=== PATIENT | male | born 1960 | race Caucasian/White ===

== ENCOUNTER 2017-01-15 19:48 | Emergency (ER) | payer MEDICAID ==
[2017-01-15 20:17] VITALS: BP 141/84; PULSE 97; RESP 18; TEMP 97.9
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
--- NOTE | 2017-01-15 21:30 | CT ---
EXAMINATION TYPE: CT facial bones wo con DATE OF EXAM: 01/15/2017 COMPARISON: NONE HISTORY: Injury to right side zygomatic area with numbness. CT DLP: 1548.5 mGycm Automated exposure control for dose reduction was used. TECHNIQUE: CT scan of the sinuses is performed without contrast, axial images are obtained, coronal r eformatted images are also reviewed. FINDINGS: There is some depression of the floor of the right orbit. There is small air bubbles adjace nt to the inferior rectus muscle. There is a small mucous retention cyst in the left maxillary sinus. The mandible appears intact. Zygomatic arches appear normal. Nasal bone appears intact. The anterior maxilla appears intact. There is some herniation of orbital fat to a small extent from the right orb it into the ethmoid sinus medially. IMPRESSION: The exam shows evidence of a blowout fracture at the floor of the right orbit with some i ntraorbital air and herniation of orbital fat medially. No evidence of muscle entrapment. Fragment di splacement is 5 mm.
--- NOTE | 2017-01-15 21:31 | CT ---
EXAMINATION TYPE: CT brain wo con DATE OF EXAM: 01/15/2017 COMPARISON: NONE HISTORY: Injury to right side zygomatic area with numbness. CT DLP: 1548.5 mGycm Automated exposure control for dose reduction was used. FINDINGS: Ventricles and sulci appear normal. There is no mass effect or midline shift. There is no sign of int racranial hemorrhage. Calvarium is intact. IMPRESSION: NEGATIVE CT SCAN OF THE BRAIN.
[2017-01-15] MEDS ORDERED: CLINDAMYCIN 150 MG CAP PO STA (21:43)
== END 2017-01-15 21:53 | disposition home or self-care (01) ==
LOC: EC 19:48
DX: G50.0 Trigeminal neuralgia (principal); S02.31XA Fracture of orbital floor, right side, initial encounter for closed fracture; Z87.891 Personal history of nicotine dependence; Z79.899 Other long term (current) drug therapy; Z91.012 Allergy to eggs; Z91.018 Allergy to other foods; W20.8XXA Other cause of strike by thrown, projected or falling object, initial encounter; Y93.89 Activity, other specified
CPT/HCPCS: 70450; 70486; 99284

== ENCOUNTER 2017-01-22 20:27 | Emergency (ER) | payer MEDICAID ==
[2017-01-22 20:33] VITALS: RESP 18
[2017-01-22] MEDS ORDERED: DEXTROSE 5%-0.45% NACL 1,000 ML IV ONE (21:52)
[2017-01-22] MEDS ORDERED: SODIUM CHLORIDE 0.9% 1,000 ML IV SCH (22:00)
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
[2017-01-22 22:40] LABS: Basophils % (A) 0 %; CH 32.1; Eosinophils # (A) 0.2 k/uL (0-0.7); Eosinophils % (A) 2 %; HCT 48.8 % (39.0-53.0); HDW 2.39; HGB 16.5 gm/dL (13.0-17.5); Luc # (Auto) 0.17; Luc % (Auto) 2; Lymphocytes # (A) 2.2 k/uL (1.0-4.8); Lymphocytes % (A) 27 %; MCHC 33.7 g/dL (31.0-37.0); MCV 94.7 fL (80.0-100.0); Mean Platelet Volume 7.1; Monocytes # (A) 0.5 k/uL (0-1.0); Monocytes % (A) 6 %; Neutrophils # (A) 5.1 k/uL (1.3-7.7); Neutrophils % (A) 63 %; RBC 5.15 m/uL (4.30-5.90); RDW 13.1 % (11.5-15.5); WBC 8.1 k/uL (3.8-10.6); WBC (Perox) 7.88
--- NOTE | 2017-01-22 22:50 | CT ---
Exam: CT FACIAL Without Contrast History: Recent orbital floor fracture, feeling worse. Comparison: CT face dated 01/15/17. Technique: Continuous axial images of the face were obtained without intravenous contrast. Coronal reformatting was provided. Findings: There is redemonstration of a right orbital floor fracture with approximately 4 mm of cortical step-off. There is residual edema/stranding in the subjacent intraconal fat and surrounding the inferior rectus. Remainder of examination shows no evidence for an additional acute fracture or dislocation. Mucous retention cyst or polyp in the left maxillary sinus measuring 1.6 cm. Impression: Redemonstration of right orbital floor fracture with residual edema and herniation of orbital fat and a minimal portion of the inferior rectus (correlate clinically for signs of entrapment). Overall, similar to prior examination. CTDI vol = 31.41 mGy DLP = 576.46 mGycm One or more of the following dose reduction techniques were used: automated exposure control, adjustment of the mA and/or kV according to patient size, use of iterative reconstruction technique.
[2017-01-22 23:15] LABS: ALT 56 U/L (21-72); AST 35 U/L (17-59); Alkaline Phosphatase 63 U/L (38-126); Anion Gap 10 mmol/L; Blood Urea Nitrogen 14 mg/dL (9-20); Calcium 9.9 mg/dL (8.4-10.2); Carbon Dioxide 29 mmol/L (22-30); Chloride 102 mmol/L (98-107); Glucose 93 mg/dL (74-99); Non-African American GFR(MDRD) >60 (>60 ml/min/1.73 sqM); Potassium 4.4 mmol/L (3.5-5.1); Sodium 141 mmol/L (137-145); Total Bilirubin 0.5 mg/dL (0.2-1.3); Total Protein 7.3 g/dL (6.3-8.2)
[2017-01-23 01:40] VITALS: BP 144/76; PULSE 84; TEMP 98.4
== END 2017-01-23 01:38 | disposition short-term general hospital (02) ==
LOC: EC 20:27
DX: S02.31XA Fracture of orbital floor, right side, initial encounter for closed fracture (principal); F07.81 Postconcussional syndrome; E23.2 Diabetes insipidus; R11.0 Nausea; Z87.891 Personal history of nicotine dependence; Z79.899 Other long term (current) drug therapy; Z91.012 Allergy to eggs; Z91.018 Allergy to other foods; W20.8XXA Other cause of strike by thrown, projected or falling object, initial encounter
CPT/HCPCS: 36415; 70450; 70486; 80053; 83930; 83935; 85025; 96360; 96361; 99285

== ENCOUNTER → 2017-03-16 | Outpatient (CLI) | payer MEDICAID ==
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
== END | disposition home or self-care (01) ==
LOC: RADCTMAIN 14:30
PROVIDERS: ATTEND Ophthalmology Ophthalmic Plastic and Reconstructive Surgery
DX: S02.31XA Fracture of orbital floor, right side, initial encounter for closed fracture (principal)
CPT/HCPCS: 70480

== ENCOUNTER 2023-02-14 09:35 | Emergency (ER) | payer MEDICAID ==
[2023-02-14] MEDS ORDERED: KETOROLAC 15 MG/ML 1 ML VIAL IVP STA (10:01)
[2023-02-14] MEDS ORDERED: SODIUM CHLORIDE 0.9% 1,000 ML IV STA (10:01)
[2023-02-14] MEDS ORDERED: ONDANSETRON 4 MG/2 ML VIAL IVP STA (10:01)
[2023-02-14 10:23] LABS: Basophils % (A) 1 %; Eosinophils # (A) 0.1 k/uL (0-0.7); Eosinophils % (A) 2 %; HCT 47.9 % (39.0-53.0); HGB 15.5 gm/dL (13.0-17.5); Lymphocytes # (A) 1.7 k/uL (1.0-4.8); Lymphocytes % (A) 23 %; MCHC 32.4 g/dL (31.0-37.0); MCV 92.3 fL (80.0-100.0); Mean Platelet Volume 7.7; Monocytes # (A) 0.4 k/uL (0-1.0); Monocytes % (A) 6 %; Neutrophils # (A) 4.8 k/uL (1.3-7.7); Neutrophils % (A) 67 %; Platelet Count 186 k/uL (150-450); RBC 5.19 m/uL (4.30-5.90); RDW 12.7 % (11.5-15.5); WBC 7.1 k/uL (3.8-10.6)
[2023-02-14 10:35] LABS: ALT 39 U/L (4-49); AST 30 U/L (17-59); African American GFR (CKD) 72 (>60 ml/min/1.73 sqM); Albumin 4.5 g/dL (3.5-5.0); Alkaline Phosphatase 58 U/L (38-126); Amylase 95 U/L (30-110); Anion Gap 9 mmol/L; Blood Urea Nitrogen 17 mg/dL (9-20); Calcium 9.4 mg/dL (8.4-10.2); Carbon Dioxide 27 mmol/L (22-30); Chloride 104 mmol/L (98-107); Glucose 129 mg/dL (74-99); Lipase 180 U/L (23-300); Non-African American GFR(CKD) 62 (>60 ml/min/1.73 sqM); Potassium 4.3 mmol/L (3.5-5.1); Sodium 140 mmol/L (137-145); Total Bilirubin 0.7 mg/dL (0.2-1.3); Total Protein 7.5 g/dL (6.3-8.2)
--- NOTE | 2023-02-14 10:36 | ED ---
Abdominal Pain HPI - General Chief Complaint: Abdominal Pain Stated Complaint: Abd Pain Time Seen by Provider: 02/14/23 09:49 Source: patient, RN notes reviewed Mode of arrival: wheelchair Limitations: no limitations - History of Present Illness Initial Comments: This is a 62-year-old male who presents to the emergency department for right lower quadrant abdominal pain. Patient states that this started early this morning. Describes it as sharp and stabbing in nature. He has also started to vomit. Denies any diarrhea or constipation. Also denies any history of similar symptoms in the past. He has not developed any fevers. Denies any fevers, chills, sore throat, cough, dyspnea, chest pain, palpitations, diarrhea, back pain, or headaches. MD Complaint: abdominal pain Location: RLQ Associated Symptoms: nausea, vomiting - Related Data Home Medications Medication Instructions Recorded Confirmed Cyanocobalamin [Vitamin B-12] 500 mcg PO HS 01/15/17 02/14/23 Cholecalciferol [Vitamin D3 (25 25 mcg PO HS 02/14/23 02/14/23 Mcg = 1000 Iu)] Dextromethorphan HBr/Quinidine 1 cap PO HS 02/14/23 02/14/23 [Nuedexta 20-10 mg Capsule] Glucosam/Osvaldo-Msm1/C/Branden/Bosw 1 tab PO HS 02/14/23 02/14/23 [Glucosamine-Chondroitin Tablet] Multivit,Calc,Min/FA/K1/Lycop 1 tab PO HS 02/14/23 02/14/23 [One-A-Day Men's Complete Tab] Previous Rx's Medication Instructions Recorded Ketorolac [Toradol] 10 mg PO Q6HR PRN #15 tab 02/14/23 Ondansetron Odt [Zofran Odt] 4 mg PO Q8HR PRN #15 tab 02/14/23 Tamsulosin [Flomax] 0.4 mg PO DAILY 7 Days #7 cap 02/14/23 Allergies Allergy/AdvReac Type Severity Reaction Status Date / Time egg AdvReac Nausea & Verified 02/14/23 11:30 Vomiting Pork/Porcine Containing AdvReac Diarrhea Verified 02/14/23 11:30 Products [Pork] Review of Systems ROS Statement: Those systems with pertinent positive or pertinent negative responses have been documented in the HPI. ROS Other: All systems not noted in ROS Statement are negative. Past Medical History Past Medical History: No Reported History History of Any Multi-Drug Resistant Organisms: None Reported Past Surgical History: Back Surgery Additional Past Surgical History / Comment(s): COLONOSCOPY Past Anesthesia/Blood Transfusion Reactions: No Reported Reaction Past Psychological History: No Psychological Hx Reported Past Alcohol Use History: Occasional Past Drug Use History: None Reported - Past Family History Mother Family Medical History: No Reported History General Exam Limitations: no limitations General appearance: alert, in distress Head exam: Present: atraumatic, normocephalic, normal inspection Respiratory exam: Present: normal lung sounds bilaterally. Absent: respiratory distress, wheezes, rales, rhonchi, stridor Cardiovascular Exam: Present: regular rate, normal rhythm, normal heart sounds. Absent: systolic murmur, diastolic murmur, rubs, gallop, clicks GI/Abdominal exam: Present: soft, tenderness (RLQ), normal bowel sounds. Absent: distended Neurological exam: Present: alert, oriented X3, CN II-XII intact Psychiatric exam: Present: normal affect, normal mood Skin exam: Present: warm, dry, intact, normal color. Absent: rash Course Vital Signs 02/14/23 02/14/23 02/14/23 09:41 11:02 12:00 Temperature 97.7 F 97.9 F Pulse Rate 87 78 78 Respiratory 24 18 18 Rate Blood Pressure 148/86 143/85 142/83 O2 Sat by Pulse 98 98 95 Oximetry Medical Decision Making - Medical Decision Making This is a 62-year-old male who presents to the emergency department for abdominal pain. Was pt. sent in by a medical professional or institution? @ -No Did you speak to anyone other than the patient for history? @ -No Did you review nursing and triage notes? @ -Yes, and I agree, it is accurate with regards to the patient's symptoms. Were old charts reviewed? @ -No Differential Diagnosis? @ -Differential Abdominal Pain Men: Appendicitis, cholecystitis, diverticulosis, ischemic bowel, pancreatitis, hepatitis, UTI, gastroenteritis, AAA, incarcerated hernia, bowel obstruction, constipation, inflammatory bowel, hepatitis, peptic ulcer disease, splenic infarction, perforated viscus, testicular torsion, this is not meant to be an all-inclusive list EKG interpreted by me (3pts min.)? @ -Not obtained X-rays interpreted by me (1pt min.)? @ -Not obtained CT interpreted by me (1pt min.)? @ -Computed tomography scan of the abdomen and pelvis obtained. My interpretation identifies a right ureteral calculus. U/S interpreted by me (1pt. min.)? @ -Not obtained What testing was considered but not performed? (CT, X-rays, U/S, labs)? Why? @ -None What meds were considered but not given? Why? @ -None Did you discuss the management of the patient with other professionals? @ -No Did you reconcile home meds? @ -No Was smoking cessation discussed for >3mins.? @ -No Was critical care preformed (if so, how long)? @ -No Were there social determinants of health that impacted care today? How? (Homelessness, low income, unemployed, alcoholism, drug addiction, transportation, low edu. Level, literacy, decrease access to med. care, correction, rehab)? @ -No Was there de-escalation of care discussed even if they declined? (Discuss DNR or withdrawal of care, Hospice)? @ -No What co-morbidities impacted this encounter? (DM, HTN, Smoking, COPD, CAD, Cancer, CVA, Hep., AIDS, mental health diagnosis, sleep apnea, morbid obesity)? @ -None Was patient admitted / discharged? @ -Discharged. Lab work obtained revealing an elevated lactic acid of 2.6, and was otherwise nonactionable. Urinalysis has a large amount of blood. Computed tomography scan of the abdomen and pelvis obtained revealing a 5 mm right ureteral calculus. Findings discussed with the patient. Symptoms were well controlled with IV fluids, Toradol, and Zofran, and the patient felt comfortable for discharge home. Prescriptions for Toradol, Zofran, and Flomax provided with instructions reviewed. He was sent home with a urine strainer. Information for urology follow-up provided. He is encouraged to contact them for a follow-up appointment. Undiagnosed new problem with uncertain prognosis? @ -None Drug Therapy requiring intensive monitoring for toxicity (Heparin, Nitro, Insulin, Cardizem)? @ -None Were any procedures done? @ -None Diagnosis/symptom? @ -Right ureteral calculus Acute, or Chronic, or Acute on Chronic? @ -Acute Uncomplicated (without systemic symptoms) or Complicated (systemic symptoms)? @ -Uncomplicated Side effects of treatment? @ -None Exacerbation, Progression, or Severe Exacerbation] @ -Not applicable Poses a threat to life or bodily function? @ -No Return precautions reviewed in depth, the patient is instructed to return to the emergency department with any new, worsening, or concerning symptoms. Patient verbalized understanding. This case was discussed in detail with the attending ED physician, Dr. Lopez. Presentation, findings, and treatment plan discussed in detail as well. - Lab Data Result diagrams: 02/14/23 10:11 02/14/23 10:11 Lab Results 02/14/23 02/14/23 02/14/23 Range/Units 10:11 10:11 10:11 WBC 7.1 (3.8-10.6) k/uL RBC 5.19 (4.30-5.90) m/uL Hgb 15.5 (13.0-17.5) gm/dL Hct 47.9 (39.0-53.0) % MCV 92.3 (80.0-100.0) fL MCH 30.0 (25.0-35.0) pg MCHC 32.4 (31.0-37.0) g/dL RDW 12.7 (11.5-15.5) % Plt Count 186 (150-450) k/uL MPV 7.7 Neutrophils % 67 % Lymphocytes % 23 % Monocytes % 6 % Eosinophils % 2 % Basophils % 1 % Neutrophils # 4.8 (1.3-7.7) k/uL Lymphocytes # 1.7 (1.0-4.8) k/uL Monocytes # 0.4 (0-1.0) k/uL Eosinophils # 0.1 (0-0.7) k/uL Basophils # 0.0 (0-0.2) k/uL Sodium 140 (137-145) mmol/L Potassium 4.3 (3.5-5.1) mmol/L Chloride 104 (98-107) mmol/L Carbon Dioxide 27 (22-30) mmol/L Anion Gap 9 mmol/L BUN 17 (9-20) mg/dL Creatinine 1.24 (0.66-1.25) mg/dL Est GFR (CKD-EPI)AfAm 72 (>60 ml/min/1.73 sqM) Est GFR (CKD-EPI)NonAf 62 (>60 ml/min/1.73 sqM) Glucose 129 H (74-99) mg/dL Lactic Ac Sepsis Rflx Plasma Lactic Acid Rickie 2.6 H* (0.7-2.0) mmol/L Calcium 9.4 (8.4-10.2) mg/dL Total Bilirubin 0.7 (0.2-1.3) mg/dL AST 30 (17-59) U/L ALT 39 (4-49) U/L Alkaline Phosphatase 58 (38-126) U/L Total Protein 7.5 (6.3-8.2) g/dL Albumin 4.5 (3.5-5.0) g/dL Amylase 95 (30-110) U/L Lipase 180 (23-300) U/L Urine Color Urine Appearance (Clear) Urine pH (5.0-8.0) Ur Specific Edgar (1.001-1.035) Urine Protein (Negative) Urine Glucose (UA) (Negative) Urine Ketones (Negative) Urine Blood (Negative) Urine Nitrite (Negative) Urine Bilirubin (Negative) Urine Urobilinogen (<2.0) mg/dL Ur Leukocyte Esterase (Negative) Urine RBC (0-5) /hpf Urine WBC (0-5) /hpf Urine Mucus (None) /hpf 02/14/23 02/14/23 Range/Units 10:41 10:44 WBC (3.8-10.6) k/uL RBC (4.30-5.90) m/uL Hgb (13.0-17.5) gm/dL Hct (39.0-53.0) % MCV (80.0-100.0) fL MCH (25.0-35.0) pg MCHC (31.0-37.0) g/dL RDW (11.5-15.5) % Plt Count (150-450) k/uL MPV Neutrophils % % Lymphocytes % % Monocytes % % Eosinophils % % Basophils % % Neutrophils # (1.3-7.7) k/uL Lymphocytes # (1.0-4.8) k/uL Monocytes # (0-1.0) k/uL Eosinophils # (0-0.7) k/uL Basophils # (0-0.2) k/uL Sodium (137-145) mmol/L Potassium (3.5-5.1) mmol/L Chloride (98-107) mmol/L Carbon Dioxide (22-30) mmol/L Anion Gap mmol/L BUN (9-20) mg/dL Creatinine (0.66-1.25) mg/dL Est GFR (CKD-EPI)AfAm (>60 ml/min/1.73 sqM) Est GFR (CKD-EPI)NonAf (>60 ml/min/1.73 sqM) Glucose (74-99) mg/dL Lactic Ac Sepsis Rflx Y Plasma Lactic Acid Rickie (0.7-2.0) mmol/L Calcium (8.4-10.2) mg/dL Total Bilirubin (0.2-1.3) mg/dL AST (17-59) U/L ALT (4-49) U/L Alkaline Phosphatase (38-126) U/L Total Protein (6.3-8.2) g/dL Albumin (3.5-5.0) g/dL Amylase (30-110) U/L Lipase (23-300) U/L Urine Color Yellow Urine Appearance Clear (Clear) Urine pH 7.0 (5.0-8.0) Ur Specific Edgar 1.048 H (1.001-1.035) Urine Protein Trace H (Negative) Urine Glucose (UA) Negative (Negative) Urine Ketones Negative (Negative) Urine Blood Large H (Negative) Urine Nitrite Negative (Negative) Urine Bilirubin Negative (Negative) Urine Urobilinogen <2.0 (<2.0) mg/dL Ur Leukocyte Esterase Negative (Negative) Urine RBC 109 H (0-5) /hpf Urine WBC 3 (0-5) /hpf Urine Mucus Rare H (None) /hpf - Radiology Data Radiology results: report reviewed, image reviewed Disposition Clinical Impression: Right ureteral calculus Disposition: HOME SELF-CARE Instructions (If sedation given, give patient instructions): Renal Colic (ED), Ureteral Stones (ED) Additional Instructions: Return to the emergency department with any new, worsening, or concerning symptoms. Take the Toradol with Tylenol as needed for pain relief. If you take the Toradol, do not take any other dtyo-[id number] anti-inflammatories such as ibuprofen, take one or the other. Take the Flomax daily for 7 days, or until you see that you passed a kidney stone. You can take the Zofran up to every 8 hours as needed for nausea and vomiting. Contact urology as listed below and let them know that you were seen in the emergency department and diagnosed with a 5 mm stone in your ureter. Follow up with your primary care provider in 1-2 days. Prescriptions: Tamsulosin [Flomax] 0.4 mg PO DAILY 7 Days #7 cap Ketorolac [Toradol] 10 mg PO Q6HR PRN #15 tab PRN Reason: Pain Ondansetron Odt [Zofran Odt] 4 mg PO Q8HR PRN #15 tab PRN Reason: Nausea And Vomiting Is patient prescribed a controlled substance at d/c from ED?: No Referrals: Khushbu Ocampo MD [Primary Care Provider] - 1-2 days Quoc López MD [STAFF PHYSICIAN] - 1-2 days
[2023-02-14 11:03] VITALS: PULSE 78; RESP 18; TEMP 97.9
--- NOTE | 2023-02-14 11:07 | CT ---
EXAMINATION TYPE: CT abdomen pelvis w con DATE OF EXAM: 02/14/2023 COMPARISON: NONE HISTORY: 62-year-old male RLQ Pain TECHNIQUE: Contiguous axial scanning of the abdomen and pelvis following administration of 100 ml Iso ranjan 300 IV contrast. Delayed images through the kidneys and coronal/sagittal reconstructions perform ed. CT DLP: 1496.6 mGycm Automated exposure control for dose reduction was used. FINDINGS: LUNG BASES: No significant abnormality is appreciated. LIVER/GB: Mildly enlarged measuring 18.4 cm. Portal venous system is no focal liver lesion or biliary ductal dilatation. Gallbladder shows no abnormal distention. PANCREAS: No significant abnormality is seen. SPLEEN: No significant abnormality is seen. ADRENALS: No significant abnormality is seen. KIDNEYS: 3 punctate nonobstructive right renal calculi measuring up to 5 mm. There is mild right-side d hydronephrosis with a 5 mm stone in the proximal third right ureter and secondary delayed excretion of contrast from the right kidney. Left kidney shows 3 nonobstructive stones measuring up to 6 mm as well as a partially exophytic 5.7 cm lateral cyst. BOWEL: Normal appendix. Mild stool in the right-sided the abdomen. No dilated small bowel, free fluid , or free air. No pericolonic inflammatory change. LYMPH NODES: No significant abnormality is seen. OTHER: No significant abnormality is seen. PELVIS: Prostate gland mildly enlarged at 4.8 cm wide. Otherwise, no significant abnormality is seen. BONES: Mild to moderate degenerative change of both hips. Mild degenerative disc disease L5-S1. IMPRESSION: 1. A 5 MM STONE IN THE PROXIMAL THIRD RIGHT URETER WITH MILD OBSTRUCTIVE UROPATHY. 2. ADDITIONAL BILATERAL NONOBSTRUCTIVE RENAL CALCULI ON BOTH SIDES MEASURING UP TO 6 MM.
[2023-02-14 11:11] LABS: Appearance,Urine Clear (Clear); Bilirubin,Urine Negative (Negative); Blood,Urine Large (Negative); Color,Urine Yellow; Glucose,Urine (UA) Negative (Negative); Ketones,Urine Negative (Negative); Leukocyte Esterase,Urine Negative (Negative); Mucus,Urine Rare /hpf; Nitrite,Urine Negative (Negative); Protein,Urine Trace (Negative); RBC,Urine 109 /hpf (0-5); Urobilinogen,Urine <2.0 mg/dL (<2.0); WBC,Urine 3 /hpf (0-5)
[2023-02-14 11:28] LABS: Specific Gravity,Urine 1.048 (1.001-1.035)
[2023-02-14] MEDS ORDERED: traMADol 50 MG STARTER PACK 3 TAB BTL PO STA (11:41)
[2023-02-14 12:02] VITALS: BP 142/83
== END 2023-02-14 12:08 | disposition home or self-care (01) ==
LOC: EC 09:35
DX: N20.1 Calculus of ureter (principal); Z91.012 Allergy to eggs; Z91.018 Allergy to other foods
CPT/HCPCS: 36415; 80053; 82150; 83605; 83690; 85025; 81001; 74177; 99284; 96374; 96375; 96361; J2405; J1885; Q9967

== ENCOUNTER → 2023-03-12 | Outpatient (CLI) | payer MEDICAID ==
--- NOTE | 2023-03-12 14:00 | XR ---
Supine abdomen. DATE: 03/12/2023. COMPARISON: CT abdomen and pelvis on 02/14/2023. MEDICAL HISTORY: Bilateral renal stones. IMPRESSION: Please note that the evaluation is limited due to overlying stool and bowel gas around the region of the renal contours. There appears to be a 5.5 mm stone overlying the lower pole of the left kidney. S tool and bowel gas limits evaluation of the right kidney is no definitive stones are seen overlying t his region. There are no definitive stones seen along the courses of the ureters bilaterally.
== END | disposition home or self-care (01) ==
LOC: RADXRMAIN 13:33
PROVIDERS: ATTEND Urology
DX: N20.2 Calculus of kidney with calculus of ureter (principal)
CPT/HCPCS: 74018

== ENCOUNTER → 2025-02-16 | Outpatient (CLI) | payer BC ==
--- NOTE | 2025-02-16 15:23 | XR ---
EXAMINATION TYPE: XR KUB DATE OF EXAM: 02/16/2025 2:49 PM COMPARISON: 03/12/2023 CLINICAL INDICATION: Male, 64 years old with history of N20.0 CALCULUS OF KIDNEY; PHH, pain TECHNIQUE: One radiographic view of the abdomen was obtained. FINDINGS: Scattered mild to moderate stool. No dilated small bowel. Redemonstrated 5 mm calcification left mid abdomen. Nonspecific calcifications on the right are present in bowel content. IMPRESSION: Nonobstructive bowel gas pattern. Mild to moderate stool burden. 5 mm left renal stone redemonstrated . A couple higher density calcifications on the right could represent bowel content. [facility], , 02/16/2025 3:21 PM
== END | disposition home or self-care (01) ==
LOC: RADXRMAIN 14:31
PROVIDERS: ATTEND Urology
DX: N20.0 Calculus of kidney (principal)
CPT/HCPCS: 74018